=== PATIENT | female | born 1945 | race Caucasian/White ===

== ENCOUNTER 2017-11-24 20:15 | Inpatient (IN) | payer MEDICARE, BC ==
[~2017-11-24] VITALS: Ht 172.7 cm; Wt 77.4 kg
[~2017-11-24 20:15] MED LIST: ALCA3DRO EACHEYE; ATOR40TA PO; BUDE10.22 HOMEINH; CYAN10002 IM; CYCL1DRO EACHEYE; DEXL60CA2 PO; DIAZ2TAB3 PO; DIAZ5TAB4 PO; FURO40TA6 PO; HYDR25TA6 PO; SENN1TAB7 PO; TRAM50TA2 PO; VENL150C PO
[2017-11-24] MEDS ORDERED: MORPHINE SULFATE 4 MG/ML, 1ML ONE ×3 (20:28→21:43)
[2017-11-24] MEDS ORDERED: morphine SULFATE 10 MG/ML, 1ML IVPush ONE (20:30)
[2017-11-24] MEDS ORDERED: SODIUM CHLORIDE FLUSH 10ML SYR IVF ONE (20:30)
[2017-11-24] MEDS ORDERED: SODIUM CHLORIDE 0.9% 1,000ML IVBOLUS ONE (20:30)
[2017-11-24] MEDS ORDERED: ONDANSETRON ODT 4 MG PO ONE (21:00)
[2017-11-24] MEDS ORDERED: ONDANSETRON ODT 4 MG ONE (21:04)
[2017-11-24] MEDS: MORPHINE SULFATE 4 MG/ML, 1ML IVPush PRN ×2 (21:07→21:46)
[2017-11-24 21:24] LABS: BASOPHILS # (AUTO) 0.04 x10^3/uL (0-0.1); BASOPHILS % (AUTO) 0 % (0-1); EOSINOPHILS % (AUTO) 1 % (1-7); LYMPHOCYTES # (AUTO) 1.64 x10^3/uL (1-3.4); LYMPHOCYTES % (AUTO) 12 % (22-44); MD NO; MEAN CORPUSCULAR HEMOGLOBIN 29.3 pg (27.0-34.8); MEAN CORPUSCULAR HGB CONC 34.1 g/dL (32.4-35.8); MEAN CORPUSCULAR VOLUME 86.2 fL (80-100); MEAN PLATELET VOLUME 8.9 fL (7.4-10.4); MONOCYTES # (AUTO) 0.84 x10^3/uL (0.2-0.8); MONOCYTES % (AUTO) 6 % (2-9); NEUTROPHILS # (AUTO) 11.08 x10^3/uL (1.8-6.8); NEUTROPHILS % (AUTO) 81 % (42-75); PLATELET COUNT 256 x10^3/uL (130-400); RED BLOOD COUNT 4.32 x10^6/uL (3.82-5.3)
[2017-11-24 21:30] LABS: ALBUMIN 3.3 g/dL (3.4-5.0); ANION GAP 6 mmol/L (5-15); CALCIUM 8.8 mg/dL (8.5-10.1); CHLORIDE 112 mmol/L (98-107)
[2017-11-24 21:31] LABS: INTERNATIONAL NORMALIZED RATIO 1.04 (0.93-1.1); PROTHROMBIN TIME 10.7 Seconds (9.6-11.5)
[2017-11-24 21:34] LABS: ALANINE AMINOTRANSFERASE 29 U/L (12-78); ALKALINE PHOSPHATASE 107 U/L (45-117); BILIRUBIN,TOTAL 0.4 mg/dL (0.2-1.0); CREATININE 0.84 mg/dL (0.55-1.02); TOTAL PROTEIN 6.5 g/dL (6.4-8.2)
[2017-11-24 23:00] VITALS: BP 156/72
[2017-11-24] MEDS ORDERED: crestor (23:15)
[2017-11-24] MEDS ORDERED: morphine SULFATE 10 MG/ML, 1ML IVPush PRN (23:35)
[2017-11-24] MEDS: morphine SULFATE 10 MG/ML, 1ML IVPush PRN (23:54)
[2017-11-25] MEDS ORDERED: ONDANSETRON 2MG/ML, 2ML IVPush PRN (00:30)
[2017-11-25] MEDS ORDERED: ENALAPRILAT 1.25 MG/ML, 2ML IVPush PRN (00:30)
[2017-11-25] MEDS ORDERED: KETOROLAC 30 MG/1 ML IVPush PRN (00:30)
[2017-11-25] MEDS ORDERED: BISACODYL 10 MG SUPP PR PRN (00:30)
[2017-11-25] MEDS ORDERED: ALCAFTADINE EACHEYE PRN (01:00)
[2017-11-25] MEDS ORDERED: LORazepam 2 MG/ML, 1ML IVPush PRN (01:00)
[2017-11-25] MEDS: NS + 40MEQ KCL 1,000 ML IV SCH ×2 (01:41→11:25)
[2017-11-25 02:10] LABS: MICROSCOPIC INDICATED
[2017-11-25 02:19] LABS: CULTURE INDICATED? NO
[2017-11-25 02:22] VITALS: BP 132/65
[2017-11-25 02:45] VITALS: BP 147/80
[2017-11-25] MEDS ORDERED: morphine SULFATE 10 MG/ML, 1ML IVPush PRN (03:35)
[2017-11-25] MEDS: morphine SULFATE 10 MG/ML, 1ML IVPush PRN ×3 (04:16→13:41)
[2017-11-25 05:11] LABS: BASOPHILS # (AUTO) 0.05 x10^3/uL (0-0.1); BASOPHILS % (AUTO) 0 % (0-1); EOSINOPHILS # (AUTO) 0.02 x10^3/uL (0-0.4); EOSINOPHILS % (AUTO) 0 % (1-7); LYMPHOCYTES # (AUTO) 1.16 x10^3/uL (1-3.4); LYMPHOCYTES % (AUTO) 11 % (22-44); MD NO; MEAN CORPUSCULAR HGB CONC 33.1 g/dL (32.4-35.8); MEAN CORPUSCULAR VOLUME 87.7 fL (80-100); MEAN PLATELET VOLUME 8.9 fL (7.4-10.4); MONOCYTES # (AUTO) 0.89 x10^3/uL (0.2-0.8); MONOCYTES % (AUTO) 8 % (2-9); NEUTROPHILS # (AUTO) 8.49 x10^3/uL (1.8-6.8); NEUTROPHILS % (AUTO) 80 % (42-75); PLATELET COUNT 227 x10^3/uL (130-400); RED BLOOD COUNT 4.16 x10^6/uL (3.82-5.3); RED CELL DISTRIBUTION WIDTH 14.1 % (9.6-15.2)
[2017-11-25 05:17] LABS: ANION GAP 5 mmol/L (5-15); CALCIUM 7.8 mg/dL (8.5-10.1); CHLORIDE 113 mmol/L (98-107)
[2017-11-25 05:21] LABS: ALANINE AMINOTRANSFERASE 149 U/L (12-78); ALKALINE PHOSPHATASE 127 U/L (45-117); BILIRUBIN,TOTAL 0.6 mg/dL (0.2-1.0); CREATININE 0.78 mg/dL (0.55-1.02)
[2017-11-25 07:28] VITALS: BP 119/66
[2017-11-25] MEDS: KETOROLAC 30 MG/1 ML IVPush PRN ×2 (07:41→14:48)
[2017-11-25] MEDS: FLUTICASONE/VILANTEROL 100-25MCG/INH INH SCH (09:00)
[2017-11-25] MEDS ORDERED: PHENYLEPHRINE 10 MG/ML ONE (10:42)
[2017-11-25] MEDS ORDERED: ROCURONIUM 10 MG/ML,10ML ONE (10:42)
[2017-11-25] MEDS ORDERED: CEFAZOLIN 1,000 MG ONE (10:42)
[2017-11-25] MEDS ORDERED: PROPOFOL 10 MG/ML, 20ML ONE (10:42)
[2017-11-25 13:37] VITALS: BP 158/69
[2017-11-25 15:51] LABS: HEMOGLOBIN A1C 5.2 % (4.2-6.3)
[2017-11-25] MEDS ORDERED: PROMETHAZINE 25 MG/ML, 1ML ONE (18:29)
[2017-11-25] MEDS ORDERED: MIDAZOLAM 1 MG/ML, 2ML ONE (18:36)
[2017-11-25] MEDS ORDERED: FENTANYL PF 250 MCG/5ML ONE (18:36)
[2017-11-25] MEDS ORDERED: DEXAMETHASONE 4 MG/ML, 1ML ONE ×2 (18:48)
[2017-11-25] MEDS: SODIUM CHLORIDE 0.9% 1,000 ML IV SCH (20:00)
[2017-11-25] MEDS ORDERED: HALOPERIDOL 5 MG/ML IV PRN (20:30)
[2017-11-25] MEDS ORDERED: HYDROmorphone 1 MG/ML, 1ML IV PRN (20:30)
[2017-11-25] MEDS ORDERED: FENTANYL PF 100 MCG/2ML IV PRN (20:30)
[2017-11-25] MEDS ORDERED: hydrALAzine 20 MG/ML, 1ML IV PRN (20:30)
[2017-11-25] MEDS ORDERED: LABETALOL 5MG/ML, 20ML IV PRN (20:30)
[2017-11-25] MEDS ORDERED: OXYcodone 5 MG/5 ML ORAL.SOL UDC PO PRN (20:30)
[2017-11-26] VITALS (7 sets, daily range): BP systolic 85–141; BP diastolic 39–59
[2017-11-26] MEDS: SODIUM CHLORIDE 0.9% 1,000 ML IV SCH ×2 (03:53→18:09)
[2017-11-26] MEDS: CEFAZOLIN PMX 2GM/50ML 50 ML IVPB SCH ×2 (03:53→12:30)
[2017-11-26] MEDS: KETOROLAC 30 MG/1 ML IVPush PRN ×2 (05:18→14:40)
[2017-11-26 05:27] LABS: ALANINE AMINOTRANSFERASE 105 U/L (12-78); ALBUMIN 2.7 g/dL (3.4-5.0); ANION GAP 6 mmol/L (5-15); CALCIUM 8.3 mg/dL (8.5-10.1); CHLORIDE 117 mmol/L (98-107); CREATININE 0.65 mg/dL (0.55-1.02)
[2017-11-26 05:29] LABS: ALKALINE PHOSPHATASE 121 U/L (45-117); BILIRUBIN,TOTAL 0.7 mg/dL (0.2-1.0); TOTAL PROTEIN 5.6 g/dL (6.4-8.2)
[2017-11-26 05:41] LABS: BASOPHILS % (AUTO) 0 % (0-1); EOSINOPHILS % (AUTO) 0 % (1-7); LYMPHOCYTES # (AUTO) 0.55 x10^3/uL (1-3.4); LYMPHOCYTES % (AUTO) 5 % (22-44); MD NO; MEAN CORPUSCULAR HGB CONC 33.1 g/dL (32.4-35.8); MEAN CORPUSCULAR VOLUME 87.6 fL (80-100); MEAN PLATELET VOLUME 8.9 fL (7.4-10.4); MONOCYTES # (AUTO) 0.53 x10^3/uL (0.2-0.8); MONOCYTES % (AUTO) 5 % (2-9); NEUTROPHILS # (AUTO) 9.57 x10^3/uL (1.8-6.8); NEUTROPHILS % (AUTO) 90 % (42-75); PLATELET COUNT 196 x10^3/uL (130-400); RED BLOOD COUNT 3.57 x10^6/uL (3.82-5.3); RED CELL DISTRIBUTION WIDTH 14.3 % (9.6-15.2)
[2017-11-26] MEDS: morphine SULFATE 10 MG/ML, 1ML IVPush PRN ×3 (06:02→18:17)
[2017-11-26] MEDS: PANTOPROZOLE 40MG TABLET PO SCH (07:44)
[2017-11-26] MEDS: CYANOCOBALAMIN 1,000 MCG/ML, 1ML IM SCH (09:30)
[2017-11-26] MEDS: VENLAFAXINE XR 37.5MG CAP.ER.24H PO SCH (09:31)
[2017-11-26] MEDS: FLUTICASONE/VILANTEROL 100-25MCG/INH INH SCH (12:30)
[2017-11-26] MEDS: ENOXAPARIN 30 MG/0.3 ML SQ SCH (20:24)
[2017-11-27] VITALS (7 sets, daily range): BP systolic 110–138; BP diastolic 53–68
[2017-11-27] MEDS: morphine SULFATE 10 MG/ML, 1ML IVPush PRN ×3 (00:02→11:24)
[2017-11-27] MEDS: KETOROLAC 30 MG/1 ML IVPush PRN ×2 (01:54→15:38)
[2017-11-27] MEDS: SODIUM CHLORIDE 0.9% 1,000 ML IV SCH (02:53)
[2017-11-27 05:26] LABS: ALBUMIN 2.3 g/dL (3.4-5.0); ANION GAP 5 mmol/L (5-15); CALCIUM 7.5 mg/dL (8.5-10.1); CHLORIDE 115 mmol/L (98-107)
[2017-11-27 05:29] LABS: ALANINE AMINOTRANSFERASE 47 U/L (12-78); ALKALINE PHOSPHATASE 91 U/L (45-117); BILIRUBIN,TOTAL 0.7 mg/dL (0.2-1.0); CREATININE 0.55 mg/dL (0.55-1.02); TOTAL PROTEIN 4.7 g/dL (6.4-8.2)
[2017-11-27 05:32] LABS: BASOPHILS # (AUTO) 0.06 x10^3/uL (0-0.1); BASOPHILS % (AUTO) 1 % (0-1); EOSINOPHILS # (AUTO) 0.25 x10^3/uL (0-0.4); EOSINOPHILS % (AUTO) 2 % (1-7); LYMPHOCYTES # (AUTO) 1.74 x10^3/uL (1-3.4); LYMPHOCYTES % (AUTO) 16 % (22-44); MD NO; MEAN CORPUSCULAR HEMOGLOBIN 29.3 pg (27.0-34.8); MEAN CORPUSCULAR HGB CONC 33.8 g/dL (32.4-35.8); MEAN CORPUSCULAR VOLUME 86.7 fL (80-100); MEAN PLATELET VOLUME 8.9 fL (7.4-10.4); MONOCYTES # (AUTO) 0.76 x10^3/uL (0.2-0.8); MONOCYTES % (AUTO) 7 % (2-9); NEUTROPHILS # (AUTO) 7.77 x10^3/uL (1.8-6.8); NEUTROPHILS % (AUTO) 74 % (42-75); PLATELET COUNT 144 x10^3/uL (130-400); RED BLOOD COUNT 2.78 x10^6/uL (3.82-5.3); RED CELL DISTRIBUTION WIDTH 14.3 % (9.6-15.2)
[2017-11-27] MEDS: VENLAFAXINE XR 37.5MG CAP.ER.24H PO SCH (08:01)
[2017-11-27] MEDS: ENOXAPARIN 30 MG/0.3 ML SQ SCH ×2 (08:02→21:47)
[2017-11-27] MEDS: CYANOCOBALAMIN 1,000 MCG/ML, 1ML IM SCH (08:02)
[2017-11-27] MEDS: PANTOPROZOLE 40MG TABLET PO SCH (08:03)
[2017-11-27] MEDS ORDERED: OXYC5SOL8 PO (11:24)
[2017-11-27] MEDS ORDERED: ENOX30SY4 SQ (11:24)
[2017-11-27] MEDS: FLUTICASONE/VILANTEROL 100-25MCG/INH INH SCH (11:54)
[2017-11-27] MEDS ORDERED: FUROSEMIDE 40 MG TABLET PO ONE (17:30)
[2017-11-28 02:38] VITALS: BP 98/60
[2017-11-28 07:44] VITALS: BP 124/68
[2017-11-28] MEDS: PANTOPROZOLE 40MG TABLET PO SCH (07:55)
[2017-11-28] MEDS: ACETAMINOPHEN 325 MG TABLET PO SCH ×2 (07:55→13:46)
[2017-11-28] MEDS: FLUTICASONE/VILANTEROL 100-25MCG/INH INH SCH (07:56)
[2017-11-28] MEDS: VENLAFAXINE XR 37.5MG CAP.ER.24H PO SCH (07:56)
[2017-11-28] MEDS: ENOXAPARIN 30 MG/0.3 ML SQ SCH (07:57)
[2017-11-28] MEDS: CYANOCOBALAMIN 1,000 MCG/ML, 1ML IM SCH (07:57)
[2017-11-28] MEDS ORDERED: morphine SULFATE 10 MG/ML, 1ML IVPush PRN (08:00)
[2017-11-28] MEDS ORDERED: CYCLOBENZAPRINE 10 MG TABLET PO PRN (10:30)
[2017-11-28] MEDS ORDERED: CYCL-259 PO (12:59)
[2017-11-28] MEDS ORDERED: ACET325T14 PO (12:59)
[2017-11-28 13:56] VITALS: BP 116/61
[2017-11-28 15:40] VITALS: BP 120/61
== END 2017-11-28 16:05 | DRG 480 ==
LOC: ED 22:07 → 4NOR 22:08
PROVIDERS: ADMIT Hospitalist; ATTEND Hospitalist
PROC: 0T9B70Z Drainage of Bladder with Drainage Device, Via Natural or Artificial Opening (ICD-10-PCS; 2017-11-25)
PROC: 0QS636Z Reposition Right Upper Femur with Intramedullary Internal Fixation Device, Percutaneous Approach (ICD-10-PCS; principal; 2017-11-25 17:30)
DX: S72.142A Displaced intertrochanteric fracture of left femur, initial encounter for closed fracture (principal); J96.91 Respiratory failure, unspecified with hypoxia; I50.33 Acute on chronic diastolic (congestive) heart failure; E44.1 Mild protein-calorie malnutrition; J98.11 Atelectasis; E87.6 Hypokalemia; E87.70 Fluid overload, unspecified; R73.9 Hyperglycemia, unspecified; D64.9 Anemia, unspecified; D72.829 Elevated white blood cell count, unspecified; E78.5 Hyperlipidemia, unspecified; I11.0 Hypertensive heart disease with heart failure; J45.909 Unspecified asthma, uncomplicated; M19.042 Primary osteoarthritis, left hand; S72.22XA Displaced subtrochanteric fracture of left femur, initial encounter for closed fracture; M19.041 Primary osteoarthritis, right hand; W01.0XXA Fall on same level from slipping, tripping and stumbling without subsequent striking against object, initial encounter; Y93.89 Activity, other specified; Y92.89 Other specified places as the place of occurrence of the external cause; Y99.8 Other external cause status; Z90.710 Acquired absence of both cervix and uterus; Z90.89 Acquired absence of other organs; Z90.49 Acquired absence of other specified parts of digestive tract; Z88.1 Allergy status to other antibiotic agents; Z88.8 Allergy status to other drugs, medicaments and biological substances; Z68.25 Body mass index [BMI] 25.0-25.9, adult
CPT/HCPCS: 36415; 71045; 72170; 76001; 76700; 80053; 80074; 81001; 82550; 83036; 83735; 85025; 85610; 85730; 93005; 96374; 96376; 99285; C1713; J0690; J1100; J1650; J1885; J2250; J2704; J3010; Q0162; C1769; J2060; J2270; J2370; J3420; J3480; J7030

== ENCOUNTER → 2018-01-13 | Outpatient (CLI) | payer MEDICARE, BC ==
[~2018-01-13] MED LIST changes: +ACET325T14 PO; +CYCL-259 PO; +ENOX30SY4 SQ; +OXYC5SOL8 PO; +crestor
[2018-01-13 12:55] LABS: BASOPHILS # (AUTO) 0.06 x10^3/uL (0-0.1); BASOPHILS % (AUTO) 1 % (0-1); EOSINOPHILS # (AUTO) 0.37 x10^3/uL (0-0.4); EOSINOPHILS % (AUTO) 4 % (1-7); LYMPHOCYTES # (AUTO) 1.57 x10^3/uL (1-3.4); LYMPHOCYTES % (AUTO) 15 % (22-44); MD NO; MEAN CORPUSCULAR HEMOGLOBIN 27.5 pg (27.0-34.8); MEAN CORPUSCULAR HGB CONC 32.6 g/dL (32.4-35.8); MEAN CORPUSCULAR VOLUME 84.4 fL (80-100); MEAN PLATELET VOLUME 8.4 fL (7.4-10.4); MONOCYTES % (AUTO) 5 % (2-9); NEUTROPHILS # (AUTO) 7.74 x10^3/uL (1.8-6.8); NEUTROPHILS % (AUTO) 76 % (42-75); PLATELET COUNT 352 x10^3/uL (130-400); RED CELL DISTRIBUTION WIDTH 15.2 % (9.6-15.2)
[2018-01-13 12:59] LABS: MICROSCOPIC NOT IND
[2018-01-13 13:06] LABS: ALBUMIN 3.1 g/dL (3.4-5.0); ANION GAP 9 mmol/L (5-15); CALCIUM 9.2 mg/dL (8.5-10.1); CHLORIDE 102 mmol/L (98-107)
[2018-01-13 13:11] LABS: CULTURE INDICATED? NO; HEMOGLOBIN A1C 5.1 % (4.2-6.3)
[2018-01-13 13:34] LABS: % IRON SATURATION 7 % (20-55); ALANINE AMINOTRANSFERASE 20 U/L (12-78); ALKALINE PHOSPHATASE 144 U/L (45-117); BILIRUBIN,TOTAL 0.3 mg/dL (0.2-1.0); CHOL/HDL RATIO 2.2; CHOLESTEROL, TOTAL 96 mg/dL (140-239); CREATININE 0.84 mg/dL (0.55-1.02); FOLATE LEVEL 19.3 ng/mL (3.1-17.5); FREE T4 (FREE THYROXINE) 1.26 ng/dL (0.76-1.46); HDL CHOL % 46 % (28-40); HDL CHOLESTEROL (DIRECT) 44 mg/dL (40-60); IRON LEVEL 20 mcg/dL (50-170); LDL CHOLESTEROL,CALCULATED 38 mg/dL (54-169); LDL/HDL RATIO 0.9 (0.5-3.0); TOTAL IRON BINDING CAPACITY 277 mcg/dL (250-450); TRANSFERRIN 209 mg/dL (200-360); TRIGLYCERIDES 71 mg/dL (50-200); VLDL CHOLESTEROL 14 mg/dL (0-25)
== END | disposition home or self-care (01) ==
LOC: LAB 12:25
PROVIDERS: ATTEND Internal Medicine
DX: Z12.4 Encounter for screening for malignant neoplasm of cervix (principal); I11.0 Hypertensive heart disease with heart failure; I50.9 Heart failure, unspecified; E78.2 Mixed hyperlipidemia; K21.9 Gastro-esophageal reflux disease without esophagitis; R79.9 Abnormal finding of blood chemistry, unspecified; R53.83 Other fatigue; E53.8 Deficiency of other specified B group vitamins; E55.9 Vitamin D deficiency, unspecified; E61.1 Iron deficiency; J45.20 Mild intermittent asthma, uncomplicated; F06.4 Anxiety disorder due to known physiological condition; R01.1 Cardiac murmur, unspecified; G89.29 Other chronic pain; F51.01 Primary insomnia; E88.81 Metabolic syndrome and other insulin resistance; Z79.899 Other long term (current) drug therapy; R79.89 Other specified abnormal findings of blood chemistry
CPT/HCPCS: 36415; 80053; 80061; 81003; 82306; 82607; 82728; 82746; 83036; 83540; 83550; 83880; 84207; 84425; 84439; 84443; 84466; 84480; 85025; 86200; 86430

== ENCOUNTER → 2018-01-28 | Outpatient (CLI) | payer MEDICARE, BC | END | disposition home or self-care (01) | LOC: CFH 09:35 | PROVIDERS: ATTEND Nurse Practitioner Primary Care | DX: I35.8 Other nonrheumatic aortic valve disorders (principal); I11.0 Hypertensive heart disease with heart failure; I50.9 Heart failure, unspecified; E78.2 Mixed hyperlipidemia; R53.83 Other fatigue; E55.9 Vitamin D deficiency, unspecified; E61.1 Iron deficiency; J45.20 Mild intermittent asthma, uncomplicated; F06.4 Anxiety disorder due to known physiological condition; G89.29 Other chronic pain; K21.9 Gastro-esophageal reflux disease without esophagitis; F51.01 Primary insomnia; E88.81 Metabolic syndrome and other insulin resistance; Z79.899 Other long term (current) drug therapy; R79.89 Other specified abnormal findings of blood chemistry | CPT/HCPCS: 93306 ==

== ENCOUNTER 2019-04-25 11:52 | Outpatient (CLI) | payer MEDICARE, BC ==
[~2019-04-25 11:52] MED LIST changes: +SENN-177 PO; -SENN1TAB7 PO
[2019-04-25] MEDS ORDERED: FENTANYL PF 100 MCG/2ML ONE (12:45)
[2019-04-25] MEDS ORDERED: MIDAZOLAM 1 MG/ML, 5ML ONE (12:45)
[2019-04-25] MEDS ORDERED: GADOTERATE 7.5 MMOL/15 ML VIAL ONE (13:20)
== END 2019-04-25 23:59 | disposition home or self-care (01) ==
LOC: RAD 11:52
PROVIDERS: ATTEND Internal Medicine
DX: R41.3 Other amnesia (principal); G31.89 Other specified degenerative diseases of nervous system; H53.8 Other visual disturbances; R47.81 Slurred speech; I10 Essential (primary) hypertension
CPT/HCPCS: 70553; 99156; 99157; A9575; J2250; J3010

== ENCOUNTER → 2021-01-24 | Outpatient (CLI) | payer MEDICARE ==
[~2021-01-24] MED LIST changes: +CHOL10003 PO; +CLON0.5T PO; -CYCL-259 PO; +CYCL10TA2 PO; +EZET10TA70 PO; +FLUT9.9S NAS; +LOSA25TA2 PO; +OMEP40CA8 PO; +POTA10CA PO; +ROSU20TA2 PO
== END | disposition home or self-care (01) ==
LOC: CFH 09:54
PROVIDERS: ATTEND Nurse Practitioner Primary Care
DX: M85.88 Other specified disorders of bone density and structure, other site (principal); M81.8 Other osteoporosis without current pathological fracture
CPT/HCPCS: 77080